=== PATIENT | male | born 1990 | race American Indian/Alaskan Native ===

== ENCOUNTER 2024-06-09 11:04 | Emergency (ER) | payer OTHER ==
[2024-06-09] MEDS: Lidocaine/Epineph/Tetracaine 3 ML Syringe TOP ONE (11:22)
== END 2024-06-09 11:51 | disposition home or self-care (01) ==
LOC: KA.ED 11:04
DX: S01.01XA Laceration without foreign body of scalp, initial encounter (principal); I10 Essential (primary) hypertension; Y03.0XXA Assault by being hit or run over by motor vehicle, initial encounter
CPT/HCPCS: 12001; 99283; A9270-GY